=== PATIENT | female | born 1935 | race Two or more races ===

== ENCOUNTER 2017-06-08 12:56 | Inpatient (IN) | payer MEDICARE, OTHER ==
[~2017-06-08] VITALS: Ht 152.4 cm; Wt 94.8 kg
[2017-06-08] MEDS ORDERED: IV NS 0.9% 500 ML BAG IV ONE (14:30)
[2017-06-08] MEDS ORDERED: PANTOPRAZOLE 40 MG VIAL IV ONE (14:30)
[2017-06-08] MEDS ORDERED: PANTOPRAZOLE 40 MG VIAL ONE (14:50)
[2017-06-08 15:01] LABS: BASOPHILS # (AUTO) 0.1 /CMM (0.0-0.2); BASOPHILS % (AUTO) 0.7 % (0.0-2.0); EOSINOPHILS # (AUTO) 0.1 /CMM (0.0-0.7); HEMATOCRIT 21 % (33-45); HEMOGLOBIN 7.4 g/dL (11.5-14.8); LYMPHOCYTES # (AUTO) 3.2 /CMM (0.8-4.8); LYMPHOCYTES % (AUTO) 41.2 % (20.0-44.0); MEAN CORPUSCULAR HEMOGLOBIN 31 PG (26.0-33.0); MEAN CORPUSCULAR HGB CONC 35 g/dl (31.0-36.0); MEAN CORPUSCULAR VOLUME 89 fL (82-100); MONOCYTES # (AUTO) 0.6 /CMM (0.1-1.30); MONOCYTES % (AUTO) 7.5 % (2.0-12.0); NEUTROPHILS # (AUTO) 3.8 /CMM (1.8-8.9); NEUTROPHILS % (AUTO) 49.6 % (43.0-81.0); PLATELET COUNT (AUTO) 160 /CMM (150-450); RDW COEFFICIENT OF VARIATION 14.3 (11.5-15.0); WHITE BLOOD COUNT (AUTO) 7.8 K/uL (4.3-11.0)
[2017-06-08 15:04] LABS: CALCIUM, SERUM 9.7 mg/dL (8.5-10.1); CARBON DIOXIDE 25 mmol/L (21-32); CHLORIDE 108 mmol/L (98-107); CREATININE 0.9 mg/dL (0.6-1.3); GLUCOSE 147 mg/dL (74-106); POTASSIUM 3.6 mmol/L (3.5-5.1); SODIUM SERUM 141 mmol/L (136-145); UREA NITROGEN, BLOOD 37 mg/dL (7-18)
[2017-06-08 15:11] LABS: ALANINE AMINOTRANSFERASE 31 U/L (12-78); ALBUMIN 3.1 g/dL (3.4-5.0); ALKALINE PHOSPHATASE 56 U/L (46-116); ASPARTATE AMINOTRANSFERASE 21 U/L (15-37); BILIRUBIN,DIRECT 0.1 mg/dL (0.0-0.2); BILIRUBIN,TOTAL 0.2 mg/dL (0.2-1.0); TOTAL PROTEIN, SERUM 6.3 g/dL (6.4-8.2)
[2017-06-08 15:13] LABS: TROPONIN I 0.048 ng/mL (0.00-0.056)
[2017-06-08 15:47] LABS: INR 1.15 (0.87-1.13)
[2017-06-08] MEDS ORDERED: ACET1TAB12 PO (15:57)
[2017-06-08] MEDS ORDERED: OLME1TAB22 PO (15:57)
[2017-06-08] MEDS ORDERED: FLUT16SP16 BNOSTRILS (15:57)
[2017-06-08] MEDS ORDERED: CHOL50004 PO (15:57)
[2017-06-08] MEDS ORDERED: OLME20TA13 PO (15:57)
[2017-06-08] MEDS ORDERED: GLIM4TAB2 PO (15:57)
[2017-06-08] MEDS ORDERED: CYCL30DR EACHEYE (15:57)
[2017-06-08] MEDS ORDERED: REPA2TAB9 PO (15:57)
[2017-06-08] MEDS ORDERED: LINA5TAB PO (15:57)
[2017-06-08] MEDS ORDERED: DULA1.5P SQ (15:57)
[2017-06-08] MEDS ORDERED: MECL-102 PO (15:57)
[2017-06-08] MEDS ORDERED: HYDR-3026 PO (15:57)
[2017-06-08 17:38] VITALS: BP 127/76
[2017-06-08] MEDS ORDERED: IV NS 0.9% 1,000 ML IV PRN (17:43)
[2017-06-08] MEDS ORDERED: *INSULIN REGULAR(HUMULIN R)HUM 100 UNIT/ML VIAL SQ PRN (18:00)
[2017-06-08] MEDS ORDERED: ONDANSETRON HCL/PF 4 MG/2 ML VIAL IVP PRN (18:00)
[2017-06-08] MEDS ORDERED: ACETAMINOPHEN 325 MG TABLET PO PRN (18:00)
[2017-06-08] MEDS ORDERED: Z GUARD REMEDY 2 OZ OINT TP PRN (18:00)
[2017-06-08] MEDS ORDERED: MAG HYDROX/AL HYDROX/SIMETH 30 ML UDC PO PRN (18:00)
[2017-06-08] MEDS ORDERED: ZOLPIDEM TARTRATE 5 MG TABLET PO PRN (18:00)
[2017-06-08] MEDS ORDERED: MAGNESIUM HYDROXIDE 30 ML UDC PO PRN (18:00)
[2017-06-08] MEDS ORDERED: ACETAMINOPHEN W/ CODEINE#3 1 EA TABLET PO PRN (18:00)
[2017-06-08] MEDS ORDERED: DEXTROSE 50%-WATER 50 ML DISP.SYRIN IV PRN (18:00)
[2017-06-08] MEDS ORDERED: HYDROCODONE/APAP 5/325MG 1 EACH TABLET PO PRN (18:00)
[2017-06-08 20:00] VITALS: BP 112/55
[2017-06-08] MEDS: PANTOPRAZOLE 40 MG VIAL IV SCH (20:57)
[2017-06-08] MEDS: BLOOD SUGAR DIAGNOSTIC 1 EACH STRIP VI SCH (21:03)
[2017-06-09] VITALS (19 sets, daily range): BP systolic 102–139; BP diastolic 51–80
[2017-06-09 07:09] LABS: MONOCYTES # (AUTO) 0.4 /CMM (0.1-1.30)
[2017-06-09 07:11] LABS: BASOPHILS % (AUTO) 0.5 % (0.0-2.0); EOSINOPHILS % (AUTO) 0.8 % (0.0-6.0); LYMPHOCYTES % (AUTO) 31.6 % (20.0-44.0); MEAN CORPUSCULAR HEMOGLOBIN 31 PG (26.0-33.0); MEAN CORPUSCULAR HGB CONC 34 g/dl (31.0-36.0); MEAN CORPUSCULAR VOLUME 91 fL (82-100); MONOCYTES % (AUTO) 6.5 % (2.0-12.0); NEUTROPHILS # (AUTO) 3.9 /CMM (1.8-8.9); NEUTROPHILS % (AUTO) 60.6 % (43.0-81.0); PLATELET COUNT (AUTO) 131 /CMM (150-450); RDW COEFFICIENT OF VARIATION 15.8 (11.5-15.0); WHITE BLOOD COUNT (AUTO) 6.4 K/uL (4.3-11.0)
[2017-06-09 07:16] LABS: HEMATOCRIT 17 % (33-45); HEMOGLOBIN 5.8 g/dL (11.5-14.8)
[2017-06-09 07:34] LABS: CALCIUM, SERUM 8.5 mg/dL (8.5-10.1); CARBON DIOXIDE 22 mmol/L (21-32); CHLORIDE 110 mmol/L (98-107); CREATININE 0.9 mg/dL (0.6-1.3); GLUCOSE 196 mg/dL (74-106); MAGNESIUM 1.5 mg/dL (1.8-2.4); PHOSPHORUS 2.5 mg/dL (2.5-4.9); POTASSIUM 3.9 mmol/L (3.5-5.1); SODIUM SERUM 143 mmol/L (136-145); UREA NITROGEN, BLOOD 33 mg/dL (7-18)
[2017-06-09] MEDS: FLUTICASONE PROPIONATE 16 GM BOTTLE NS SCH ×2 (08:31→18:22)
[2017-06-09] MEDS: PANTOPRAZOLE 40 MG VIAL IV SCH ×2 (08:34→20:11)
[2017-06-09] MEDS: BLOOD SUGAR DIAGNOSTIC 1 EACH STRIP VI SCH ×4 (08:34→21:08)
[2017-06-09] MEDS ORDERED: IV NS 0.9% 1,000 ML IV PRN ×2 (08:39→17:30)
[2017-06-09] MEDS: RESTASIS EACHEYE SCH (09:00)
[2017-06-09 10:44] LABS: LYMPHOCYTES % (MANUAL) 29 % (16-48); MONOCYTES % (MANUAL) 5 % (0-11.0); NEUTROPHILS % (MANUAL) 66 (42-76)
[2017-06-09] MEDS: Magnesium 1GM/D5W 100ML PREMIX 100 ML IV SCH ×4 (14:39→21:44)
[2017-06-09] MEDS ORDERED: ANESTHESIA TRAY IN PYXIS 1 EA TRAY MC ONE (15:19)
[2017-06-09 15:36] LABS: THYROID STIMULATING HORMONE 1.958 uIU/mL (0.358-3.74); URIC ACID 7.9 mg/dL (2.6-7.2)
[2017-06-09] MEDS: SUCRALFATE 1 G/10 ML UDC PO SCH ×2 (18:22→21:25)
[2017-06-09] MEDS ORDERED: FUROSEMIDE 20 MG/2 ML VIAL ONE (20:28)
[2017-06-09] MEDS: FUROSEMIDE 20 MG/2 ML VIAL IV ONE ×2 (20:31→20:37)
[2017-06-09] MEDS ORDERED: LINA5TAB PO (21:29)
[2017-06-09] MEDS ORDERED: FLUT15.88 NS (21:29)
[2017-06-09] MEDS ORDERED: OLME20TA13 PO (21:29)
[2017-06-09] MEDS ORDERED: Magnesium 1GM/D5W 100ML PREMIX 100 ML IV ONE (21:43)
[2017-06-09 21:44] LABS: HEMOGLOBIN 7.5 g/dL (11.5-14.8)
[2017-06-10] VITALS (11 sets, daily range): BP systolic 101–147; BP diastolic 53–99
[2017-06-10] MEDS: BLOOD SUGAR DIAGNOSTIC 1 EACH STRIP VI SCH ×4 (05:53→22:58)
[2017-06-10 06:51] LABS: BASOPHILS % (AUTO) 0.7 % (0.0-2.0); EOSINOPHILS # (AUTO) 0.1 /CMM (0.0-0.7); LYMPHOCYTES % (AUTO) 34.5 % (20.0-44.0); MEAN CORPUSCULAR HEMOGLOBIN 32 PG (26.0-33.0); MEAN CORPUSCULAR HGB CONC 35 g/dl (31.0-36.0); MEAN CORPUSCULAR VOLUME 92 fL (82-100); MONOCYTES # (AUTO) 0.4 /CMM (0.1-1.30); MONOCYTES % (AUTO) 6.5 % (2.0-12.0); NEUTROPHILS # (AUTO) 3.3 /CMM (1.8-8.9); NEUTROPHILS % (AUTO) 57.3 % (43.0-81.0); PLATELET COUNT (AUTO) 119 /CMM (150-450); RDW COEFFICIENT OF VARIATION 16.2 (11.5-15.0); RED BLOOD CELL COUNT(AUTO) 2.02 MIL/uL (4.0-5.2); WHITE BLOOD COUNT (AUTO) 5.7 K/uL (4.3-11.0)
[2017-06-10] MEDS: SUCRALFATE 1 G/10 ML UDC PO SCH ×4 (07:30→22:58)
[2017-06-10 07:59] LABS: HEMATOCRIT 19 % (33-45); HEMOGLOBIN 6.5 g/dL (11.5-14.8)
[2017-06-10 08:09] LABS: BAND % (MANUAL) 1 % (0.0-5.0); EOSINOPHILS % (MANUAL) 1 % (0-4); LYMPHOCYTES % (MANUAL) 29 % (16-48); MONOCYTES % (MANUAL) 5 % (0-11.0); NEUTROPHILS % (MANUAL) 64 (42-76)
[2017-06-10] MEDS: FLUTICASONE PROPIONATE 16 GM BOTTLE NS SCH ×2 (08:32→16:30)
[2017-06-10] MEDS ORDERED: BISACODYL (5 MG) 5 MG TABLET.DR PO ONE (09:00)
[2017-06-10] MEDS: PANTOPRAZOLE 40 MG VIAL IV SCH ×2 (09:00→20:43)
[2017-06-10] MEDS ORDERED: PEG 3350/NA SULF,BICARB,CL/KCL 4,000 ML BOTTLE PO ONE (09:00)
[2017-06-10] MEDS ORDERED: MAGNESIUM CITRATE 296 ML BOTTLE PO ONE ×4 (10:00→18:00)
[2017-06-10] MEDS: INSULIN REGULAR, HUMAN 100 UNIT/ML 3 ML VIAL SQ PRN (18:20)
[2017-06-11] VITALS (16 sets, daily range): BP systolic 112–140; BP diastolic 49–83
[2017-06-11 06:35] LABS: CALCIUM, SERUM 7.5 mg/dL (8.5-10.1); CARBON DIOXIDE 24 mmol/L (21-32); CHLORIDE 115 mmol/L (98-107); CREATININE 0.8 mg/dL (0.6-1.3); GLUCOSE 185 mg/dL (74-106); PHOSPHORUS 2.4 mg/dL (2.5-4.9); POTASSIUM 3.5 mmol/L (3.5-5.1); SODIUM SERUM 149 mmol/L (136-145); UREA NITROGEN, BLOOD 23 mg/dL (7-18)
[2017-06-11 07:15] LABS: PARTIAL THROMBOPLASTIN TIME < 20 SEC (23-34)
[2017-06-11] MEDS: BLOOD SUGAR DIAGNOSTIC 1 EACH STRIP VI SCH ×4 (08:06→21:59)
[2017-06-11] MEDS: SUCRALFATE 1 G/10 ML UDC PO SCH ×4 (08:06→21:52)
[2017-06-11] MEDS: FLUTICASONE PROPIONATE 16 GM BOTTLE NS SCH ×2 (08:12→17:42)
[2017-06-11] MEDS: PANTOPRAZOLE 40 MG VIAL IV SCH ×2 (08:12→21:52)
[2017-06-11] MEDS ORDERED: BUMETANIDE INJ 1 MG in IV NS 0.9% 40 ML IV ONE (10:00)
[2017-06-11] MEDS ORDERED: NEUTRA PHOS 1 POWD.PACKET PO ONE (12:00)
[2017-06-11 13:02] LABS: BASOPHILS % (AUTO) 0.6 % (0.0-2.0); EOSINOPHILS % (AUTO) 0.7 % (0.0-6.0); LYMPHOCYTES # (AUTO) 1.5 /CMM (0.8-4.8); LYMPHOCYTES % (AUTO) 27.5 % (20.0-44.0); MEAN CORPUSCULAR HEMOGLOBIN 32 PG (26.0-33.0); MEAN CORPUSCULAR HGB CONC 34 g/dl (31.0-36.0); MEAN CORPUSCULAR VOLUME 93 fL (82-100); MONOCYTES # (AUTO) 0.3 /CMM (0.1-1.30); MONOCYTES % (AUTO) 6.2 % (2.0-12.0); NEUTROPHILS # (AUTO) 3.6 /CMM (1.8-8.9); PLATELET COUNT (AUTO) 120 /CMM (150-450); RDW COEFFICIENT OF VARIATION 16.6 (11.5-15.0); WHITE BLOOD COUNT (AUTO) 5.6 K/uL (4.3-11.0)
[2017-06-11 13:11] LABS: RED BLOOD CELL COUNT(AUTO) 1.94 MIL/uL (4.0-5.2)
[2017-06-11 13:13] LABS: HEMATOCRIT 18 % (33-45); HEMOGLOBIN 6.1 g/dL (11.5-14.8)
[2017-06-11] MEDS ORDERED: MECLIZINE HCL 25 MG TABLET PO PRN (13:30)
[2017-06-11] MEDS ORDERED: LINAGLIPTIN 5 MG TABLET PO SCH (13:30)
[2017-06-11] MEDS ORDERED: Medication Not On Formulary EA (Olmesartan/Hydrochlorothiazide (Benicar Hct 40-25 Mg Tab PO SCH (13:30)
[2017-06-11] MEDS ORDERED: hydrOXYzine PAMOATE 25 MG CAPSULE PO PRN (13:30)
[2017-06-11] MEDS ORDERED: PHYTONADIONE INJ 10 MG/1 ML AMPUL SQ ONE (14:00)
[2017-06-11] MEDS: LINAGLIPTIN 5 MG TABLET PO SCH (14:12)
[2017-06-11] MEDS: CHOLECALCIFEROL 1,000 UNIT TABLET (VIT D3) PO SCH (14:12)
[2017-06-11] MEDS: REPAGLINIDE 2 MG TABLET PO SCH ×2 (14:12→17:00)
[2017-06-11] MEDS: GLIMEPIRIDE 4 MG TABLET PO SCH ×2 (14:14→17:42)
[2017-06-11 14:15] LABS: BAND % (MANUAL) 2 % (0.0-5.0); LYMPHOCYTES % (MANUAL) 27 % (16-48); MONOCYTES % (MANUAL) 8 % (0-11.0); NEUTROPHILS % (MANUAL) 63 (42-76)
[2017-06-11] MEDS ORDERED: Medication Not On Formulary EA (Olmesartan Medoxomil (Benicar) 20 MG) PO SCH (18:00)
[2017-06-11 20:37] LABS: HEMOGLOBIN 6.7 g/dL (11.5-14.8)
[2017-06-12] VITALS (10 sets, daily range): BP systolic 109–141; BP diastolic 68–98
[2017-06-12 08:10] LABS: CALCIUM, SERUM 7.9 mg/dL (8.5-10.1); CARBON DIOXIDE 23 mmol/L (21-32); CHLORIDE 111 mmol/L (98-107); CREATININE 0.9 mg/dL (0.6-1.3); GLUCOSE 158 mg/dL (74-106); POTASSIUM 3.8 mmol/L (3.5-5.1); SODIUM SERUM 143 mmol/L (136-145); UREA NITROGEN, BLOOD 20 mg/dL (7-18)
[2017-06-12 08:11] LABS: PHOSPHORUS 2.7 mg/dL (2.5-4.9)
[2017-06-12] MEDS: SUCRALFATE 1 G/10 ML UDC PO SCH ×4 (08:35→21:40)
[2017-06-12] MEDS: BLOOD SUGAR DIAGNOSTIC 1 EACH STRIP VI SCH ×4 (08:35→21:44)
[2017-06-12] MEDS: FLUTICASONE PROPIONATE 16 GM BOTTLE NS SCH ×2 (08:36→16:46)
[2017-06-12] MEDS: CHOLECALCIFEROL 1,000 UNIT TABLET (VIT D3) PO SCH (08:36)
[2017-06-12] MEDS: LINAGLIPTIN 5 MG TABLET PO SCH (08:36)
[2017-06-12] MEDS: PANTOPRAZOLE 40 MG VIAL IV SCH (08:36)
[2017-06-12] MEDS: GLIMEPIRIDE 4 MG TABLET PO SCH ×2 (08:36→21:40)
[2017-06-12] MEDS: RESTASIS EACHEYE SCH ×3 (09:00→16:55)
[2017-06-12] MEDS: REPAGLINIDE 2 MG TABLET PO SCH ×2 (12:06→16:46)
[2017-06-12] MEDS ORDERED: LINAGLIPTIN 5 MG TABLET PO SCH ×2 (13:30→21:00)
[2017-06-12 18:51] LABS: BASOPHILS % (AUTO) 0.6 % (0.0-2.0); EOSINOPHILS # (AUTO) 0.1 /CMM (0.0-0.7); EOSINOPHILS % (AUTO) 1.2 % (0.0-6.0); HEMATOCRIT 24 % (33-45); HEMOGLOBIN 7.9 g/dL (11.5-14.8); LYMPHOCYTES # (AUTO) 1.8 /CMM (0.8-4.8); LYMPHOCYTES % (AUTO) 26.8 % (20.0-44.0); MEAN CORPUSCULAR HEMOGLOBIN 31 PG (26.0-33.0); MEAN CORPUSCULAR HGB CONC 34 g/dl (31.0-36.0); MEAN CORPUSCULAR VOLUME 91 fL (82-100); MONOCYTES # (AUTO) 0.4 /CMM (0.1-1.30); MONOCYTES % (AUTO) 6.6 % (2.0-12.0); NEUTROPHILS # (AUTO) 4.3 /CMM (1.8-8.9); NEUTROPHILS % (AUTO) 64.8 % (43.0-81.0); PLATELET COUNT (AUTO) 137 /CMM (150-450); RDW COEFFICIENT OF VARIATION 16.8 (11.5-15.0); RED BLOOD CELL COUNT(AUTO) 2.57 MIL/uL (4.0-5.2); WHITE BLOOD COUNT (AUTO) 6.6 K/uL (4.3-11.0)
[2017-06-12] MEDS: PANTOPRAZOLE 40 MG TABLET.DR PO SCH (21:39)
[2017-06-13] VITALS: BP 129/80
[2017-06-13 04:00] VITALS: BP 132/73
[2017-06-13 07:23] LABS: BASOPHILS % (AUTO) 0.8 % (0.0-2.0); EOSINOPHILS # (AUTO) 0.1 /CMM (0.0-0.7); EOSINOPHILS % (AUTO) 1.3 % (0.0-6.0); HEMATOCRIT 22 % (33-45); HEMOGLOBIN 7.6 g/dL (11.5-14.8); LYMPHOCYTES # (AUTO) 1.5 /CMM (0.8-4.8); LYMPHOCYTES % (AUTO) 24.2 % (20.0-44.0); MEAN CORPUSCULAR HEMOGLOBIN 32 PG (26.0-33.0); MEAN CORPUSCULAR HGB CONC 35 g/dl (31.0-36.0); MEAN CORPUSCULAR VOLUME 91 fL (82-100); MONOCYTES # (AUTO) 0.4 /CMM (0.1-1.30); MONOCYTES % (AUTO) 6.6 % (2.0-12.0); NEUTROPHILS # (AUTO) 4.2 /CMM (1.8-8.9); NEUTROPHILS % (AUTO) 67.1 % (43.0-81.0); PLATELET COUNT (AUTO) 120 /CMM (150-450); RDW COEFFICIENT OF VARIATION 17.4 (11.5-15.0); WHITE BLOOD COUNT (AUTO) 6.3 K/uL (4.3-11.0)
[2017-06-13 07:35] LABS: CALCIUM, SERUM 7.9 mg/dL (8.5-10.1); CARBON DIOXIDE 26 mmol/L (21-32); CHLORIDE 114 mmol/L (98-107); CREATININE 0.8 mg/dL (0.6-1.3); GLUCOSE 90 mg/dL (74-106); MAGNESIUM 1.9 mg/dL (1.8-2.4); POTASSIUM 3.7 mmol/L (3.5-5.1); SODIUM SERUM 146 mmol/L (136-145); UREA NITROGEN, BLOOD 17 mg/dL (7-18)
[2017-06-13] MEDS: BLOOD SUGAR DIAGNOSTIC 1 EACH STRIP VI SCH ×2 (07:47→11:32)
[2017-06-13] MEDS: SUCRALFATE 1 G/10 ML UDC PO SCH ×2 (07:48→11:32)
[2017-06-13 08:00] VITALS: BP_SYST 128; BP_SYST 141; BP_DIAS 58; BP_DIAS 83
[2017-06-13] MEDS: CHOLECALCIFEROL 1,000 UNIT TABLET (VIT D3) PO SCH (08:58)
[2017-06-13] MEDS: GLIMEPIRIDE 4 MG TABLET PO SCH (08:58)
[2017-06-13] MEDS: PANTOPRAZOLE 40 MG TABLET.DR PO SCH (08:58)
[2017-06-13] MEDS: REPAGLINIDE 2 MG TABLET PO SCH (08:59)
[2017-06-13] MEDS: FLUTICASONE PROPIONATE 16 GM BOTTLE NS SCH (09:01)
[2017-06-13] MEDS: RESTASIS EACHEYE SCH (09:01)
[2017-06-13] MEDS: INSULIN REGULAR, HUMAN 100 UNIT/ML 3 ML VIAL SQ PRN (11:32)
[2017-06-13 12:00] VITALS: BP 140/68
== END 2017-06-13 13:34 | disposition home or self-care (01) | DRG 377 ==
LOC: ER 13:03 → TELE1 16:45
PROVIDERS: ADMIT Internal Medicine; ATTEND Internal Medicine
PROC: 30233N1 Transfusion of Nonautologous Red Blood Cells into Peripheral Vein, Percutaneous Approach (ICD-10-PCS; 2017-06-09)
PROC: 05H633Z Insertion of Infusion Device into Left Subclavian Vein, Percutaneous Approach (ICD-10-PCS; 2017-06-09)
PROC: 0DB68ZX Excision of Stomach, Via Natural or Artificial Opening Endoscopic, Diagnostic (ICD-10-PCS; principal; 2017-06-09 16:00)
PROC: 0DBG8ZZ Excision of Left Large Intestine, Via Natural or Artificial Opening Endoscopic (ICD-10-PCS; 2017-06-11)
DX: K29.01 Acute gastritis with bleeding (principal); E43 Unspecified severe protein-calorie malnutrition; D68.59 Other primary thrombophilia; E88.09 Other disorders of plasma-protein metabolism, not elsewhere classified; I11.0 Hypertensive heart disease with heart failure; I50.9 Heart failure, unspecified; D62 Acute posthemorrhagic anemia; I48.91 Unspecified atrial fibrillation; E83.42 Hypomagnesemia; Z68.41 Body mass index [BMI] 40.0-44.9, adult; E11.9 Type 2 diabetes mellitus without complications; I25.10 Atherosclerotic heart disease of native coronary artery without angina pectoris; E78.5 Hyperlipidemia, unspecified; K21.9 Gastro-esophageal reflux disease without esophagitis; Z90.710 Acquired absence of both cervix and uterus; M62.50 Muscle wasting and atrophy, not elsewhere classified, unspecified site; K44.9 Diaphragmatic hernia without obstruction or gangrene; L98.8 Other specified disorders of the skin and subcutaneous tissue; L30.4 Erythema intertrigo; T45.515A Adverse effect of anticoagulants, initial encounter; Y92.009 Unspecified place in unspecified non-institutional (private) residence as the place of occurrence of the external cause; K63.5 Polyp of colon; K29.80 Duodenitis without bleeding; Z79.84 Long term (current) use of oral hypoglycemic drugs
CPT/HCPCS: 36415; 71045-TC; 80048-TC; 80076-TC; 82306; 82728-TC; 82746; 82962-TC; 83540-TC; 83615-TC; 83735-TC; 83880; 84100-TC; 84443-TC; 84484-TC; 84550-TC; 85025-TC; 85027-TC; 85045-TC; 85652-TC; 85730-TC; 86850-TC; 86921-TC; 87081-TC; 88305-TC; 88313-TC; 88342; A4216; A4606; C9113; J1815; J1940; J2405; J2704; J3430; J3475; J3490; J7040; J7050; P9016-BL; Z7610

== ENCOUNTER 2018-12-29 13:26 | Emergency (ER) | payer MEDICARE, OTHER ==
[~2018-12-29] VITALS: Ht 152.4 cm; Wt 90.7 kg
[~2018-12-29 13:26] MED LIST: ACET1TAB12 PO; CHOL50004 PO; CYCL30DR EACHEYE; DULA1.5P SQ; FLUT15.88 NS; FLUT16SP16 BNOSTRILS; GLIM4TAB2 PO; HYDR-500 PO; LINA5TAB PO; MECL-102 PO; OLME1TAB22 PO; OLME20TA13 PO; REPA2TAB10 PO
[2018-12-29 14:41] LABS: BASOPHILS # (AUTO) 0.1 /CMM (0.0-0.2); BASOPHILS % (AUTO) 0.7 % (0.0-2.0); HEMATOCRIT 37 % (33-45); HEMOGLOBIN 12.3 g/dL (11.5-14.8); LYMPHOCYTES # (AUTO) 1.5 /CMM (0.8-4.8); LYMPHOCYTES % (AUTO) 19.7 % (20.0-44.0); MEAN CORPUSCULAR HGB CONC 34 g/dl (31.0-36.0); MEAN CORPUSCULAR VOLUME 91 fL (82-100); MONOCYTES # (AUTO) 0.5 /CMM (0.1-1.30); MONOCYTES % (AUTO) 6.8 % (2.0-12.0); NEUTROPHILS # (AUTO) 5.5 /CMM (1.8-8.9); NEUTROPHILS % (AUTO) 71.8 % (43.0-81.0); PLATELET COUNT (AUTO) 155 /CMM (150-450); RED BLOOD CELL COUNT(AUTO) 4.04 MIL/uL (4.0-5.2); WHITE BLOOD COUNT (AUTO) 7.6 K/uL (4.3-11.0)
[2018-12-29 14:49] LABS: CALCIUM, SERUM 9.8 mg/dL (8.5-10.1); CARBON DIOXIDE 29 mmol/L (21-32); CHLORIDE 106 mmol/L (98-107); GLUCOSE 158 mg/dL (74-106); POTASSIUM 3.9 mmol/L (3.5-5.1); SODIUM SERUM 144 mmol/L (136-145); UREA NITROGEN, BLOOD 20 mg/dL (7-18)
[2018-12-29] MEDS ORDERED: IV NS 0.9% 1,000 ML BAG IV ONE (16:00)
--- NOTE | 2018-12-29 17:25 | NUR ---
PATIENT AWAKE ALERT DANISH SPEAKING FAMILY @ BEDSIDE MADE AWARE PALN OF CARE
[2018-12-29 18:02] LABS: BILIRUBIN,DIRECT 0.1 mg/dL (0.0-0.2); BILIRUBIN,TOTAL 0.5 mg/dL (0.2-1.0)
[2018-12-29 19:02] VITALS: BP 167/89
--- NOTE | 2018-12-29 19:03 | NUR ---
Patient discharged to home in stable condition. Written and verbal after care instructions given. Patient verbalizes understanding of instruction.
--- NOTE | 2018-12-29 19:04 | NUR ---
[facility] REMOVED NOTED CATH INTACT LAC NO EDEMA ,NO PAIN
== END 2018-12-29 19:07 | disposition home or self-care (01) ==
LOC: ER 13:31
DX: L76.34 Postprocedural seroma of skin and subcutaneous tissue following other procedure (principal); I11.0 Hypertensive heart disease with heart failure; I50.9 Heart failure, unspecified; I25.10 Atherosclerotic heart disease of native coronary artery without angina pectoris; K21.9 Gastro-esophageal reflux disease without esophagitis; E11.9 Type 2 diabetes mellitus without complications; F32.9 Major depressive disorder, single episode, unspecified; E78.5 Hyperlipidemia, unspecified; M19.90 Unspecified osteoarthritis, unspecified site; Z90.710 Acquired absence of both cervix and uterus; Z98.890 Other specified postprocedural states; Z88.2 Allergy status to sulfonamides; Z79.899 Other long term (current) drug therapy
CPT/HCPCS: 36415; 80048; 82247; 82248; 83605 ×2; 85025; 99283; J7030